=== PATIENT | male | born 1980 | race Caucasian/White ===

== ENCOUNTER 2023-09-19 14:52 | Emergency (ER) | payer BC, SELFPAY ==
[2023-09-19 15:29] VITALS: BP 147/102; PULSE 96; RESP 16; TEMP 36.2; O2SAT 99; BMI 39.3
--- NOTE | 2023-09-19 17:31 | CRLHL7_ITS ---
For Patients: As a result of the Century Cures Act, medical imaging exams and procedure reports are released immediately into your electronic medical record. You may view this report before your referring provider. If you have questions, please contact your health care provider. INDICATION: Rectal bleeding, clots of blood, abdominal pain. TECHNIQUE: CT abdomen and pelvis acquired with 143 cc Isovue 370 IV contrast. COMPARISON: None. FINDINGS: Lower chest: Unremarkable. Liver: Unremarkable. Normal in size and attenuation. No suspicious masses. Gallbladder and bile ducts: Unremarkable. No stones or inflammation. No biliary dilatation. Pancreas: Unremarkable. No mass or inflammation. Spleen: Unremarkable. Normal in size. No masses. Adrenal glands: Unremarkable. No nodules. Kidneys: Unremarkable. No suspicious masses, stones, or hydronephrosis. GI tract: Unremarkable. Normal in caliber. No sign of mass or inflammation. Normal appendix. Vasculature: Abdominal aorta is normal in caliber. Mesenteric arteries are patent. Lymph nodes: No lymphadenopathy. Peritoneum/Abdominal Wall: Unremarkable. No sign of mass or infiltration. No free air or significant free fluid. Pelvis: Unremarkable. Bones: Age-indeterminate L1 compression deformity. IMPRESSION: No acute intra-abdominal process identified. Please note that all CT scans at this facility use dose modulation, iterative reconstruction, and/or weight-based dosing when appropriate to reduce radiation dose to as low as reasonably achievable. Dictated by Bairon Barrera MD @ 09/19/2023 6:40:58 PM (Electronically Signed)
[2023-09-19 17:54] LABS: Basophils Absolute Auto 0.03 K/uL (0.00-0.30); Basophils Percent Auto 0.3 % (0.0-3.0); Eosinophils Absolute Auto 0.39 K/uL (0.00-0.50); Eosinophils Percent Auto 4.1 % (0.0-7.0); Hematocrit 46.3 % (37.0-53.0); Hemoglobin* 16.1 gm/dL (13.5-17.5); Immature Granulocytes Abs Auto 0.01 K/uL (0.00-0.30); Immature Granulocytes Pct Auto 0.1 %; Lymphocytes Absolute Auto 2.24 K/uL (0.90-2.90); Lymphocytes Percent Auto 23.3 % (20-44); Mean Corpuscular HGB Conc 35 gm/dL (32-36); Mean Corpuscular Hemoglobin 33 pg (26-34); Mean Corpuscular Volume 94 fL (80-100); Monocytes Percent Auto 9.6 % (0.0-11.0); Neutrophils Absolute Auto 6.02 K/uL (1.7-7.0); Neutrophils Percent Auto 62.6 % (42.0-72.0); Platelet Count* 266 K/uL (140-440); RDW Coefficient of Variation % 12.3 % (11.5-15.5); Red Blood Count 4.91 m/uL (4.30-5.90); White Blood Count* 9.61 K/uL (4.50-11.00)
[2023-09-19 18:02] LABS: Slide Review Reflex No
[2023-09-19 18:08] LABS: Chloride* 105 mmol/L (96-114); Potassium* 3.9 mmol/L (3.6-5.1); Sodium* 140 mmol/L (135-149)
[2023-09-19 18:11] LABS: Anion Gap 9 mEq/L (7-15); Blood Urea Nitrogen* 11 mg/dL (5-24); Calcium* 9.3 mg/dL (8.4-10.6); Carbon Dioxide* 26 mmol/L (20-32); Creatinine* 0.8 mg/dL (0.5-1.5); Est. Creatinine Clearance* 133.38; Estimated Glomerular Filt Rate 114 ml/min; Glucose* 90 mg/dL (60-115)
--- NOTE | 2023-09-19 18:46 | ED_ITS ---
HPI - General Adult General Date Seen: 09/19/23 Chief complaint: GI Bleed Stated complaint: Rectal blood clots Time Seen by Provider: 09/19/23 17:17 History of Present Illness HPI narrative: This is a 43-year-old male with a past medical history of tobacco use, but otherwise healthy who presents to the ER today for dark red clotted bloody output from his rectum. He had 1 episode of bloody output yesterday and 2 episodes today. Total volume of blood difficult estimate per perhaps a few tbsp in total. He has never had similar bloody stools before. Triage note indicated that he had had 3 bloody stools in the past but that is not true, this was a misunderstanding. He has actually had 3 bloody stool since yesterday. No other symptoms. No fever or chills. No diarrhea. No abdominal pain. No nausea or vomiting. No other unusual bleeding or bleeding gums or blood in his urine. No recent suspicious food intake. He did recent travel to and from [place] but was very careful to only drink bottled water while there. He does not take any anticoagulants. No family history of coagulopathy. He does have a history of 1 previous hemorrhoid. No recent rectal trauma. No rectal foreign bodies. 0 no recent hard stools. No tenesmus. Related Data Home Medications Medication Instructions Recorded Confirmed No Known Home Medications 09/19/23 09/19/23 Allergies Allergy/AdvReac Type Severity Reaction Status Date / Time No Known Drug Allergies Allergy Verified 09/19/23 17:56 [facility] Social History Smoking Status: Current every day smoker Exam Narrative: Exam Narrative: Constitutional: Appears well-developed and well-nourished. Alert. Conversant. Non toxic. HENT: Head: Atraumatic. Nose: Nose normal. Mouth/Throat: Oral mucosa is clear and moist. no trismus. Pharynx normal. Tonsils symmetric. No tonsillar enlargement, erythema, or exudate. Eyes: Conjunctivae normal. EOM normal. Pupils equal, round, and reactive to light. No scleral icterus. Neck: Normal range of motion. Neck supple. No tracheal deviation present. Cardiovascular: Normal rate, regular rhythm. No gallop. No friction rub. No murmur heard. Symmetric radial artery pulses Pulmonary/Chest: Effort normal. No stridor. No respiratory distress. No wheezes. No rales. No rhonchi . No tenderness. Abdominal: Soft. Bowel sounds normal. No distension. No mass. No tenderness. No rebound. No guarding. Rectal: Normal bony 0 cleft. Normal external rectum. Normal tone. No fissures or hemorrhoids. No rectal masses. Musculoskeletal: RUE: Normal range of motion. No tenderness. No deformity LUE: Normal range of motion. No tenderness. No deformity RLE: Normal range of motion. No edema. No tenderness. No deformity LLE: Normal range of motion. No edema. No tenderness. No deformity Neurological: Alert and oriented to person, place, and time. Normal strength. CN II-VII intact. No sensory deficit. GCS eye subscore is 4. GCS verbal subscore is 5. GCS motor subscore is 6. Normal coordination Skin: Skin is warm and dry. No rash noted. No pallor. Normal capillary refill. Psychiatric: Normal mood. Normal affect. Const: Vital Signs, click to edit/add: Vital Signs - 24 hr 09/19/23 15:29 Temperature 97.2 F L Pulse Rate [Pulse Oximeter] 96 Respiratory Rate 16 Blood Pressure [Ri t Upper Arm] 147/102 H Pulse Oximetry 99 Oxygen Delivery Me thod Room Air Course Vital Signs Vital signs: Initial Vital Signs Temperature 97.2 F L 09/19/23 15:29 Temperature Source Temporal Artery Scan 09/19/23 15:29 Pulse Rate 96 09/19/23 15:29 Respiratory Rate 16 09/19/23 15:29 Blood Pressure 147/102 H 09/19/23 15:29 Blood Pressure Mean 117 H 09/19/23 15:29 Blood Pressure Position Sitting 09/19/23 15:29 Pulse Oximetry 99 09/19/23 15:29 Oxygen Delivery Method Room Air 09/19/23 15:29 Vital Signs Temperature 97.2 F L 09/19/23 15:29 Pulse Rate 96 09/19/23 15:29 Respiratory Rate 16 09/19/23 15:29 Blood Pressure 147/102 H 09/19/23 15:29 Pulse Oximetry 99 09/19/23 15:29 Oxygen Delivery Method Room Air 09/19/23 15:29 Temperature 97.2 F L 09/19/23 15:29 Pulse Rate 96 09/19/23 15:29 Respiratory Rate 16 09/19/23 15:29 Blood Pressure 147/102 H 09/19/23 15:29 Pulse Oximetry 99 09/19/23 15:29 Oxygen Delivery Method Room Air 09/19/23 15:29 Medical Decision Making MDM Narrative Medical decision making narrative: This is a pleasant 43-year-old gentleman who presents to the ER today with 3 small volume bloody stools since yesterday. He has pictures of dark red clotted blood, total volume less than 1 tbsp roughly per stool. He is hemodynamically stable. Hemoglobin is normal at 16.1. White count 9.6. Platelet count normal. He is not anticoagulated or coagulopathic. Kidney function normal. Rectal exam does not show any evidence for external sources of bleeding such as hemorrhoid or fissure. No evidence for proctitis on exam. CT scan is obtained to look for colitis, ulcerative colitis, Crohn's disease, or other cause of bloody stools. CT is normal. He is not really having any mucousy stools or other infection symptoms of consider possible infection as a cause for stools. I ordered stool culture here in the ER but he was not able to produce large enough stool volume to obtain a culture differential would also include other causes of lower GI bleeding such as AVM. At this point with stable vitals and reassuring labs, minimal active bleeding here in the ER, with reasonable clinical confidence that think he is safe for discharge home with careful outpatient management. He will follow up for outpatient colonoscopy as soon as possible. Precautions for return to the ER reviewed. Lab Data Labs: Lab Results 09/19/23 Range/Units 17:45 WBC 9.61 (4.50-11.00) K/uL RBC 4.91 (4.30-5.90) m/uL Hgb 16.1 (13.5-17.5) gm/dL Hct 46.3 (37.0-53.0) % MCV 94 (80-100) fL MCH 33 (26-34) pg MCHC 35 (32-36) gm/dL RDW Coeff of Rae 12.3 (11.5-15.5) % Plt Count 266 (140-440) K/uL Neut % (Auto) 62.6 (42.0-72.0) % Lymph % (Auto) 23.3 (20-44) % [place] % (Auto) 9.6 (0.0-11.0) % Eos % (Auto) 4.1 (0.0-7.0) % Baso % (Auto) 0.3 (0.0-3.0) % Neut # (Auto) 6.02 (1.7-7.0) K/uL Lymph # (Auto) 2.24 (0.90-2.90) K/uL [place] # (Auto) 0.90 (0.00-0.90) K/UL Eos # (Auto) 0.39 (0.00-0.50) K/uL Baso # (Auto) 0.03 (0.00-0.30) K/uL Abs Immat Gran (auto) 0.01 (0.00-0.30) K/uL Imm/Tot Granulo (auto) 0.1 % Sodium 140 (135-149) mmol/L Potassium 3.9 (3.6-5.1) mmol/L Chloride 105 (96-114) mmol/L Carbon Dioxide 26 (20-32) mmol/L Anion Gap 9 (7-15) mEq/L BUN 11 (5-24) mg/dL Creatinine 0.8 (0.5-1.5) mg/dL Estimated Creat Clear 133.38 Estimated GFR 114 ml/min Glucose 90 (60-115) mg/dL Calcium 9.3 (8.4-10.6) mg/dL Discharge Plan Discharge Clinical Impression: Painless rectal bleeding Patient Disposition: Home, Self-Care Condition: Stable Instructions: Rectal Bleeding (ED) Additional Instructions: As we discussed, please come back to the ER right away if you have worsening symptoms such as increasing bloody stools, abdominal pain, fever, lightheadedness, or fainting. Please call your regular doctors office or the [facility] surgery clinic at [phone] on Thursday morning to schedule an outpatient appointment recheck and to arrange colonoscopy. Prescriptions: No Action No Known Home Medications Follow Up/Referrals: Shannon Hinojosa CNP [Primary Care Provider] - Stand Alone Forms: MyHealth Info Instructions
== END 2023-09-19 19:07 | disposition home or self-care (01) ==
PROVIDERS: Emergency Provider Emergency Medicine; PCP Nurse Practitioner Family
DX: K62.5 Hemorrhage of anus and rectum (principal)
CPT/HCPCS: 36415; 74177; 80048; 85025; 95992; 99284; 99285; Q9967

== ENCOUNTER 2023-10-08 12:14 | Outpatient (CLI) | payer BC, SELFPAY ==
--- NOTE | 2023-10-08 12:50 | W.ANESCHARGE ---
Anesthesia Charges Start Date/Time Anesthesia Start Date: 10/08/23 Anesthesia Start Time: 13:07 Stop Date/Time Anesthesia Stop Date: 10/08/23 Anesthesia Stop Time: 13:35
--- NOTE | 2023-10-08 13:33 | W.ANESCHARGE ---
Anesthesia Charges Start Date/Time Anesthesia Start Date: 10/08/23 Anesthesia Start Time: 13:07 Stop Date/Time Anesthesia Stop Date: 10/08/23 Anesthesia Stop Time: 13:35
== END 2023-10-08 12:15 | disposition home or self-care (01) ==
LOC: OP CLINIC 12:15
PROVIDERS: PCP Nurse Practitioner Family; Visit Provider Internal Medicine
DX: K92.1 Melena (principal); K64.8 Other hemorrhoids
CPT/HCPCS: 00811; 00812; 45378; J2704